=== PATIENT | male | born 1995 | race Caucasian/White ===

== ENCOUNTER 2022-09-11 10:30 | Emergency (ER) | payer SELFPAY ==
[~2022-09-11] VITALS: Ht 162.6 cm; Wt 63.5 kg
[2022-09-11] MEDS ORDERED: LIDOCAINE HCL 1% 20 ML VIAL ONE (10:43)
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
[2022-09-11] MEDS ORDERED: CEphaleXIN 500 MG CAPSULE ONE (11:12)
[2022-09-11] MEDS ORDERED: CEPH500T PO (11:15)
[2022-09-11] MEDS ORDERED: CEphaleXIN 500 MG CAPSULE PO ONE (11:15)
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
[2022-09-11] MEDS ORDERED: LIDOCAINE HCL 1% 20 ML VIAL TP ONE (11:30)
== END 2022-09-11 11:37 | disposition home or self-care (01) ==
LOC: ER 10:30
DX: S61.211A Laceration without foreign body of left index finger without damage to nail, initial encounter (principal); S61.213A Laceration without foreign body of left middle finger without damage to nail, initial encounter; X99.1XXA Assault by knife, initial encounter; Y93.89 Activity, other specified
CPT/HCPCS: 99283; 12001; J3490; A4663

== ENCOUNTER 2022-09-20 16:02 | Emergency (ER) | payer MEDICAID ==
[~2022-09-20] VITALS: Ht 162.6 cm; Wt 63.5 kg
[~2022-09-20 16:02] MED LIST: CEPH500T PO
--- NOTE | 2022-09-20 16:40 | NUR ---
[email or web address], medical screening exam in progress
--- NOTE | 2022-09-20 17:08 | NUR ---
Patient discharged to home in stable condition. Written and verbal after care instructions given in [place] with [employer] electrical technician#[id number]. Patient verbalized understanding and compliance of instructions. Stressed follow up with primary doctor and orthopedic surgeon or return to ER for worsening s/s.
== END 2022-09-20 17:08 | disposition home or self-care (01) ==
LOC: ER 16:02
DX: S61.211D Laceration without foreign body of left index finger without damage to nail, subsequent encounter (principal); S61.213D Laceration without foreign body of left middle finger without damage to nail, subsequent encounter; X99.1XXD Assault by knife, subsequent encounter
CPT/HCPCS: A4663